=== PATIENT | female | born 1960 | race Caucasian/White ===

== ENCOUNTER 2018-01-13 00:18 | Emergency (ER) | payer OTHER, SELFPAY ==
[2018-01-13 00:20] VITALS: BP 133/78; BP 149/88; PULSE 70; PULSE 91; RESP 14; RESP 15; TEMP 36.8; O2SAT 96; O2SAT 98; BMI 25.7
[2018-01-13 00:24] VITALS: O2SAT 98
--- NOTE | 2018-01-13 00:28 | RAD_ITS ---
STUDY: X-RAY - PELVIS AND RIGHT HIP REASON FOR EXAM: Female, 57 years old. Right hip pain status post fall TECHNIQUE: Radiological exam, hip, unilateral, with pelvis when performed; 2 or 3 views. COMPARISON: None. FINDINGS: There is a non-specific bowel gas pattern. Normal visualized soft tissue structures. Bilateral iliac wings and sacrum are intact. Mild degenerative change of bilateral sacroiliac joints. Normal bilateral superior and inferior pubic rami. Normal pubic symphysis. Normal bilateral ischial tuberosities. Right hip is in normal alignment demonstrates mild nonuniform joint space narrowing and subchondral sclerosis. No right femoral fracture. Left hip joint is in normal alignment and demonstrates mild nonuniform joint space narrowing and subchondral sclerosis. No left femoral fracture. RAD/HIP, UNI W/ Pelvis 2-3 Views IMPRESSION: 1. No evidence of acute injury to the pelvis. 2. 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 Electronically Signed: Mukesh Sparks MD at 2:01 EDT Tel , Service support ,
--- NOTE | 2018-01-13 00:32 | ED.VISSUMM ---
- ER Visit Summary Date of Service: 01/13/18 Chief Complaint: Right hip pain History of Present Illness: The patient is a 57 F presenting with right hip pain after fall. 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 They both fell to the floor. She states she landed on the patient. She did not hit her head or lose consciousness. She has been able to ambulate. She complains of right hip pain. She took Aleve prior to arrival. No other injuries. Physical Examination: Vitals are stable. Patient is afebrile. Alert no acute distress. HEENT exam is unremarkable. Neck is nontender Lungs are clear and equal bilaterally. Heart is regular rate and rhythm. Abdomen is soft nontender nondistended. Back: No midline tenderness Extremities right lateral hip tenderness to palpation with painful range of motion Skin is warm and dry. No focal neurologic deficit. Remainder of exam is unremarkable. Emergency Department Course and Treatment: Right hip xray shows no evidence of acute injury to the pelvis. 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 On reevaluation, she is resting comfortably. She is advised to follow-up with [facility] care. Advised use NSAIDs for pain. Advised return to ED for worsening complaints. Disposition: Discharge home Impression: Right hip contusion status post fall This note was generated with [employer] dictation software. It may contain incorrect words, spelling, and punctuation that were not noted in review of the chart prior to signing ED Disposition - Plan for ED Patient: Chief Complaint: Fall Instructions: ED Mechanical Fall Referrals: [facility] [GROUP OF PHYSICIANS] - Vasile Altamirano III, MD [Primary Care Provider] -
--- NOTE | 2018-01-13 00:57 | ED.RN ---
CALLED RAHUL TO TEST THIS PT AT 0028
--- NOTE | 2018-01-13 02:23 | DCINST.ED_ITS ---
ED Disposition - Plan for ED Patient: Chief Complaint: Fall Instructions: ED Mechanical Fall Referrals: Vasile Altamirano III, MD [Primary Care Provider] - [facility] [GROUP OF PHYSICIANS] -
[2018-01-13 02:38] VITALS: RESP 18
== END 2018-01-13 02:38 | disposition home or self-care (01) ==
LOC: ED 00:35
PROVIDERS: Emergency Provider Emergency Medicine; Family Provider Family Medicine; PCP Family Medicine
DX: S70.01XA Contusion of right hip, initial encounter (principal); W18.39XA Other fall on same level, initial encounter; Y93.89 Activity, other specified; Y92.129 Unspecified place in nursing home as the place of occurrence of the external cause; Y99.0 Civilian activity done for income or pay; Z72.0 Tobacco use
CPT/HCPCS: 73502; 99282

== ENCOUNTER 2020-01-07 10:57 | Emergency (ER) | payer OTHER, SELFPAY ==
[2020-01-07 10:57] VITALS: BP 139/93; PULSE 82; RESP 16; TEMP 36.2; O2SAT 98; BMI 27.4
--- NOTE | 2020-01-07 11:11 | RAD_ITS ---
STUDY: X-RAY - RIGHT FOOT CLINICAL: Female, 59 years old. FALL TODAY, PAIN TECHNIQUE: 3 view(s) of the foot. COMPARISON: None. FINDINGS: There is a plantar calcaneal spur. The bones are osteopenic. Normal visualized subtalar, talonavicular, calcaneocuboid, tarsal and tarsometatarsal articulations. Normal metatarsi. Normal metatarsophalangeal joint of the great toe. Normal tibial and fibular sesamoid bones. Normal interphalangeal joint of the great toe. Normal phalanges of the great toe. Normal second through fifth metatarsophalangeal joints. Normal interphalangeal joints and phalanges of the lesser toes. The soft tissue structures are unremarkable. RAD/Foot min 3 Views IMPRESSION: Osteopenia. Plantar spur. No visualized acute fracture. Electronically Signed: Lesa Arcos MD at 12:22 EDT Tel , Service support ,
--- NOTE | 2020-01-07 11:12 | RAD_ITS ---
STUDY: X-RAY - LEFT SCAPULA REASON FOR EXAM: Female, 59 years old. FALL, PAIN, POSTERIOR SHOULDER TECHNIQUE: 2 view(s) of the scapula were obtained. COMPARISON: None. FINDINGS: Normal scapula, including the osseous glenoid rim, acromion, scapular neck, spine, coracoid process, and visualized body. Normal glenohumeral articulation. There is degenerative arthrosis of the acromioclavicular joint without inferior osseous spur formation. Normal visualized humeral head. Normal visualized pulmonary apex. There is partially visualized degenerative change in the cervical and thoracic spine. RAD/Scapula IMPRESSION: Normal plain film x-ray examination of the scapula. Electronically Signed: Lesa Arcos MD at 12:17 EDT Tel , Service support ,
[2020-01-07] MEDS: Ibuprofen 600 MG Tablet PO (11:32)
--- NOTE | 2020-01-07 12:42 | ED.DCSUM_ITS ---
- ER Visit Summary Date of Service: 01/07/20 Chief Complaint: Fall History of Present Illness: The patient is a 59 F who reports that an hour and a half ago she lost her balance and fell. States that she hurt her left scapula and has pain out of 6 out of 10 in severity. She has pain in her right foot that is 10 out of 10 with standing and 6 out of 10 at rest. She denies any blow to the head or loss of consciousness. No neck, back, shoulder, wrist, or hip pain. Physical Examination: Vitals: Stable. Afebrile. Neck: No vertebral tenderness. Full ROM without difficulty. Cleared by NEXUS criteria. Back: No vertebral tenderness. General: A&O x 3. NAD. Cardiovascular exam: Regular rate and rhythm, no murmur, rub or gallop. Respiratory exam: Chest nontender. No crepitus. Clear to auscultation bilaterally. No wheezes or stridor. Abdominal exam: Soft, nontender, nondistended, normal bowel sounds. No pain in RUQ or LUQ specifically. No peritoneal signs. Extremity: Mild tenderness palpation is diffuse over her left scapula. No pain with range of motion of her shoulder. No tenderness over the proximal humerus or over the clavicle. She is neuro vas intact distal this. Moderate tenderness palpation over the mid to distal half of her right fifth metatarsal. No soft tissue swelling or contusion. 2+ dorsalis pedis pulse. Test Results: Clinical Impression(s) from Imaging Studies Foot X-Ray 01/07/20 11:11 IMPRESSION: Osteopenia. Plantar spur. No visualized acute fracture. Electronically Signed: Lesa Arcos MD at 12:22 EDT Tel , Service support , Scapula X-Ray 01/07/20 11:12 IMPRESSION: Normal plain film x-ray examination of the scapula. Electronically Signed: Lesa Arcos MD at 12:17 EDT Tel , Service support , Emergency Department Course and Treatment: Patient was treated with ibuprofen. She is resting comfortably. Treatment Plan: Patient will be discharged with a sling and a walking boot. Instructed to follow-up Dr. Pastrana in 1 week if her shoulder is not improving. Follow-up with Dr. Plasencia in 1 week if her foot is not improving. Return to the emergency department for any worsening symptoms. Disposition: To home in improved and stable condition. Impression: 1. Fall. 2. Right foot sprain. 3. Left scapular pain. This note was generated with [employer]ation software. It may contain incorrect words, spelling, and punctuation that were not noted in review of the chart prior to signing ED Disposition - Plan for ED Patient: Disposition: Home or Assisted Living Instructions: ED Sprain Foot, ED Shoulder Pain Uncertain Cause Referrals: Jericho Pemberton DO [STAFF PHYSICIAN] - 1 Week if not improving Jericho Plasencia DPM [STAFF PHYSICIAN] - 1 Week if not improving
== END 2020-01-07 13:05 | disposition home or self-care (01) ==
LOC: ED 11:50
PROVIDERS: Emergency Provider Emergency Medicine; PCP Family Medicine
DX: S93.601A Unspecified sprain of right foot, initial encounter (principal); M25.512 Pain in left shoulder; F17.200 Nicotine dependence, unspecified, uncomplicated; F32.9 Major depressive disorder, single episode, unspecified; W19.XXXA Unspecified fall, initial encounter
CPT/HCPCS: 73010; 73630; 99283

== ENCOUNTER 2020-06-30 20:31 | Emergency (ER) | payer OTHER, SELFPAY ==
[2020-06-30 20:32] VITALS: BP 177/84; PULSE 125; RESP 16; TEMP 37; O2SAT 97; BMI 30.7
--- NOTE | 2020-06-30 20:33 | ED.RN ---
RN CALLED FOR EKG, PULLED OLD EKGS FOR
--- NOTE | 2020-06-30 20:39 | ED.RN ---
family member waiting in parking lot. neva [phone]
--- NOTE | 2020-06-30 20:46 | EKG12_ITS ---
Test Reason : CP Blood Pressure : / mmHG Vent. Rate : 124 BPM Atrial Rate : 124 BPM P-R Int : 166 ms QRS Dur : 074 ms QT Int : 314 ms P-R-T Axes : 053 -39 031 degrees QTc Int : 451 ms Sinus tachycardia Left axis deviation Inferior infarct , age undetermined ,cannot be excluded Anterior infarct , age undetermined ,cannot be excluded Abnormal ECG Confirmed by OSIRIS YOO, MARLINE ([id number]), manager editorial GELACIO MUNOZ ([id number]) on 07/03/2020 10:32:26 AM Referred By: MERCEDES Confirmed By:MARLINE NEWELL MD
[2020-06-30] MEDS: Acetaminophen 500 MG Tablet 1000 MG PO (20:52)
[2020-06-30] MEDS: 0.9% Normal Saline 1,000 ML 1000 ML IV (20:53)
[2020-06-30 20:56] VITALS: BP 157/62; PULSE 101; RESP 20; O2SAT 97
[2020-06-30 21:02] LABS: Absolute Neutrophil Count 9.3 X10^3/uL (2.0-7.7); Basophil# 0.09 X10^3/uL; Basophil% 0.7 % (0-1); Eosinophil# 0.05 X10^3/uL; Eosinophils% 0.4 % (0-5); Hematocrit 50.6 % (37-47); Hemoglobin 16.6 g/dL (12.0-15.0); Lymphocyte % 23.4 % (19-41); Mean Corp Hgb Conc 32.8 g/dL (32-36); Mean Corpuscular Hgb 29.7 pg (27.0-32.0); Mean Corpuscular Volume 90.7 fL (81-99); Mean Platelet Vol. 10.8 fl (6.2-12.0); Monocyte# 0.69 X10^3/uL; Monocyte% 5.2 % (0-10); NRBC Flagged by Analyzer 0 % (0-5); Neutrophil # 9.26 X10^3/uL (2.7-7.7); Neutrophil % 69.8 % (47-70); Platelet Count 367 K/mm3 (150-450); RBC Distribution Width CV 12.3 % (11.6-14.6); RBC Distribution Width SD 40.8 fl (35.1-43.9); Red Blood Count 5.58 M/mm3 (4.2-5.4); White Blood Count 13.3 K/mm3 (4.4-11.0)
--- NOTE | 2020-06-30 21:02 | RAD_ITS ---
HISTORY: CHEST PAIN TODAY EXAM: XR Chest 1 View: COMPARISON: None FINDINGS: # of images incl. paperwork: 1 Lungs are clear. Heart is not enlarged. No acute osseous pathology perceived. Pulmonary vascularity is distinct. No effusions. RAD/Chest 1 View (Portable) IMPRESSION: Normal. at 2120 Reported and signed by: Edgard Kothari MD Electronically Signed: Edgard Kothari MD at 21:19 EST Tel , Service support ,
[2020-06-30 21:10] LABS: D-Dimer Quantitative (DVT/PE) 0.71 FEU/ug/m (0.27-0.49)
[2020-06-30 21:20] LABS: Anion Gap 6 (5-15); BUN 18 mg/dL (7-18); Calcium,Total 10.2 mg/dL (8.5-10.1); Chloride 110 mmol/L (98-107); Creatinine, Serum 1.06 mg/dL (0.55-1.02); EST Glomerular Filtration Rate 56 mL/min (>60); Est Glom Filt Rate - Afr Amer 68 mL/min (>60); Estimated Creatinine Clearance 43.52 ml/min; Glucose 105 mg/dL (74-106); Potassium 4.1 mmol/L (3.5-5.1); Sodium Level 141 mmol/L (136-145); Thyroid Stim Hormone (TSH) 0.81 uIU/mL (0.358-3.74)
[2020-06-30 22:01] VITALS: BP 153/80; PULSE 89; RESP 20; O2SAT 93
--- NOTE | 2020-06-30 22:04 | CT_ITS ---
HISTORY: CP THAT STARTED TODAY TECHNIQUE: Helically acquired images were obtained of the chest following the intravenous administration of 100 ML of Isovue-370 Iodinated contrast. as per pulmonary angiogram protocol with 2D , without any 3-D MIP reconstructions. A radiation dose optimization technique was used for this scan. COMPARISON: Chest x-ray from less than one hour earlier. FINDINGS: # of images incl. paperwork: 1151 Lungs are clear but for trace basilar atelectasis. No effusions. Within the thoracic spine there is a mild kyphosis with multilevel degenerative disc disease Vertebral body height is mostly preserved Facets are well aligned. No rib lesions are perceived. Heart is not enlarged. Thoracic aorta is normal. No aneurysms, stenoses, dissections, nor occlusions. Mild mediastinal hilar and axillary lymph node prominence. I would not place the size and number of the lymph nodes, however, be great enough to be adenopathy No pulmonary emboli. The left adrenal gland is somewhat plethoric and lobular in contour. I cannot discern definitively if there is a left adrenal nodule just thickening of the gland. It is feasible from the medial limb of the left adrenal gland there is a 14 mm nodule. If this is a nodule, then it has a central density of 12 Hounsfield units. On the coronal reformatted images it certainly does appear to be nodular CT/CTA Chest W/WO Contrast IMPRESSION: No pulmonary embolism, aortic aneurysm, or aortic dissection. 14 mm left adrenal nodule with a density of 12 Hounsfield units. Although this is likely a benign adenoma if it is indeed a nodule and not just a plethoric adrenal gland, that histological diagnosis cannot be confirmed based on current imaging parameters. Recommend comparison to any previous imaging. If no previous imaging consider follow-up imaging. Follow-up imaging could be a multiphase CT or MRI. Individualized dose optimization techniques were used for this CT. at 2243 Reported and signed by: Edgard Kothari MD Electronically Signed: Edgard Kothari MD at 22:42 EST Tel , Service support ,
--- NOTE | 2020-06-30 22:54 | ED.VISSUMM ---
- ER Visit Summary Date of Service: 06/30/20 Chief Complaint: Chest pain History of Present Illness: The patient is a [address] Vasile Altamirano iii. 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 Is a constant sharp pain since that time. Is 8 out of 10 at worst and 3-10 currently. It is worsened by deep breaths. She denies any change with exertion or movement. Is relieved by remaining still. She does report that she has mild shortness of breath with this. She denies any nausea, vomiting, or diaphoresis. Physical Examination: Vitals: Stable. Afebrile. General: Well-nourished and well-developed. Head: Normocephalic atraumatic. Neck: Supple, no lymphadenopathy. No JVD. Nontender. Cardiovascular: Regular rate and rhythm. No murmurs. Respiratory: No respiratory distress. Clear to auscultation bilaterally. Abdominal: Soft, nontender, nondistended, normal bowel sounds. No guarding, rebound, or peritoneal signs. Back: Nontender. Extremities: Nontender, no edema. Skin: Normal color, no rash. Neurologic: Alert and oriented ?3. Cranial nerves II through XII are intact. Normal strength and sensation. Psych: Normal affect. Test Results: EKG is sinus tach at [address] changes. There is no old EKG for comparison. Troponin is negative. D-dimer is 0.71. Chem-7 shows a chloride of 110, creatinine 1.06, calcium 10.2. TSH is 0.81. COVID-19 is negative. CBC shows a white count of 13.3, H&H of 16.6 and 50.6. Clinical Impression(s) from Imaging Studies Chest X-Ray 06/30/20 21:02 IMPRESSION: Normal. at 2120 Reported and signed by: Edgard Kothari MD Electronically Signed: Edgard Kothari MD at 21:19 EST Tel , Service support , Chest CTA 06/30/20 22:04 IMPRESSION: No pulmonary embolism, aortic aneurysm, or aortic dissection. 14 mm left adrenal nodule with a density of 12 Hounsfield units. Although this is likely a benign adenoma if it is indeed a nodule and not just a plethoric adrenal gland, that histological diagnosis cannot be confirmed based on current imaging parameters. Recommend comparison to any previous imaging. If no previous imaging consider follow-up imaging. Follow-up imaging could be a multiphase CT or MRI. Individualized dose optimization techniques were used for this CT. at 2243 Reported and signed by: Edgard Kotahri MD Electronically Signed: Edgard Kothari MD at 22:42 EST Tel , Service support , Emergency Department Course and Treatment: Patient was treated with Tylenol and is resting comfortably. She was given a liter bolus of normal saline. Repeat heart rate is in the 70s. Treatment Plan: Patient's pain is very atypical. Her heart score is 3. I feel that she is suitable candidate for further outpatient evaluation. I also did discuss with her the adrenal nodule. She is instructed to follow-up with her primary care physician in 3 to 5 days for another exam. Return to the emergency department for any worsening symptoms. Disposition: To home in improved and stable condition. Impression: 1. Atypical chest pain. 2. Heart score of 3. 3. Left adrenal nodule. This note was generated with [employer] dictation software. It may contain incorrect words, spelling, and punctuation that were not noted in review of the chart prior to signing ED Disposition - Plan for ED Patient: Disposition: Home or Assisted Living Instructions: ED Chest Pain, Uncertain Cause Referrals: Vasile Altamirano III, MD [Primary Care Provider] - 3-5 Days
[2020-06-30 23:06] VITALS: BP 149/82; PULSE 75; RESP 16; O2SAT 98
== END 2020-06-30 23:09 | disposition home or self-care (01) ==
PROVIDERS: Emergency Provider Emergency Medicine; PCP Family Medicine
DX: R07.89 Other chest pain (principal); F17.200 Nicotine dependence, unspecified, uncomplicated
CPT/HCPCS: 71045; 71275; 80048; 84443; 84484; 85025; 85379; 87426; 93005; 99284; J7030; Q9967; A4216

== ENCOUNTER 2021-06-17 10:46 | Emergency (ER) | payer OTHER, SELFPAY ==
[2021-06-17 10:47] VITALS: BP 117/60; PULSE 103; RESP 15; TEMP 35.8; O2SAT 97; BMI 28.0
[2021-06-17 12:03] LABS: Absolute Lymphocyte Count 2.32 X10^3/uL (0.83-4.51); Absolute Neutrophil Count 6.5 X10^3/uL (2.0-7.7); Basophil# 0.06 X10^3/uL; Basophil% 0.6 % (0-1); Eosinophil# 0.05 X10^3/uL; Eosinophils% 0.5 % (0-5); Hematocrit 45.5 % (37-47); Hemoglobin 14.6 g/dL (12.0-15.0); Lymphocyte # 2.32 X10^3/ul (0.83-4.51); Lymphocyte % 24.4 % (19-41); Mean Corp Hgb Conc 32.1 g/dL (32-36); Mean Corpuscular Hgb 28.5 pg (27.0-32.0); Mean Corpuscular Volume 88.7 fL (81-99); Mean Platelet Vol. 10.2 fl (6.2-12.0); Monocyte# 0.48 X10^3/uL; Monocyte% 5.1 % (0-10); NRBC Flagged by Analyzer 0 % (0-5); Neutrophil # 6.53 X10^3/uL (2.7-7.7); Neutrophil % 68.9 % (47-70); Platelet Count 312 K/mm3 (150-450); RBC Distribution Width CV 12.6 % (11.6-14.6); RBC Distribution Width SD 41.4 fl (35.1-43.9); Red Blood Count 5.13 M/mm3 (4.2-5.4); White Blood Count 9.5 K/mm3 (4.4-11.0)
[2021-06-17 12:17] LABS: AST(SGOT) 10 U/L (15-37); Alanine Aminotransfer ALT/SGPT 17 U/L (13-56); Albumin, Serum 3.8 g/dL (3.2-5.0); Alkaline Phosphatase 115 U/L (45-117); Anion Gap 6 (5-15); BUN 19 mg/dL (7-18); BUN/Creat Ratio 31.1 RATIO (10-20); Calcium,Total 9.5 mg/dL (8.5-10.1); Chloride 108 mmol/L (98-107); Creatinine, Serum 0.61 mg/dL (0.55-1.02); EST Glomerular Filtration Rate 105 mL/min (>60); Est Glom Filt Rate - Afr Amer 127 mL/min (>60); Estimated Creatinine Clearance 74.66 ml/min; Globulin 3.9 g/dL (2.2-4.2); Glucose 99 mg/dL (74-106); Potassium 3.9 mmol/L (3.5-5.1); Protein, Total 7.7 g/dL (6.4-8.2); Sodium Level 141 mmol/L (136-145)
[2021-06-17 12:33] VITALS: BP 122/74; PULSE 93; RESP 16; TEMP 36.7; O2SAT 97
--- NOTE | 2021-06-17 12:59 | EDS_ITS ---
HPI History of Present Illness Chief Complaint: Abd Pain Informant: patient Onset/Context/Timing Onset: Days (5 days) Context: Gradual Onset Current Severity: Mild Maximum Severity: Moderate Narrative Narrative: Patient presents with a 5-day history of fever and suprapubic abdominal pain. She said temperature has been around 101. It will come down briefly with Tylenol and then go back up again. She complains of pain in the suprapubic area but denies dysuria. She denies pain with bowel movement. No cough or congestion. She does report some nausea but no vomiting. She tested negative for COVID earlier today. [facility] Medical History Arthritis Back pain history of herniated discs back History of skin cancer History of TMJ disorder Plantar fasciitis Shoulder pain Home Medications ergocalciferol (vitamin D2) 1,250 mcg PO QWEEK 01/07/20 [History Last Taken Unknown] paroxetine HCl 30 mg PO DAILY 01/07/20 [History Last Taken Unknown] ciprofloxacin HCl [Cipro] 500 mg PO BID #20 tab 06/17/21 [Rx Last Taken Unknown] metronidazole 500 mg PO Q12H 10 Days #20 tab 06/17/21 [Rx Last Taken Unknown] Allergy/AdvReac Type Severity Reaction Status Date / Time meperidine [From Demerol] Allergy Anaphylaxis Verified 06/17/21 10:50 aspirin AdvReac Nausea/Vom/ Verified 06/17/21 10:50 Diarrhea Latex, Natural Rubber AdvReac Hives Verified 06/17/21 10:50 Penicillins AdvReac Anaphylaxis Verified 06/17/21 10:50 Family History Mother Cancer Father Kidney failure Surgical History History of hysterectomy History of tubal ligation Social History Smoking Status: Smoker, status unknown alcohol intake: never ROS ROS ED Constitutional Constitutional ED: Reports fever(s) Eyes Eyes: Denies blurry vision or change in vision ENT ENT ED: Denies rhinorrhea or sore throat Cardiovascular Cardiovascular: Denies chest pain or palpitations Respiratory/Chest Respiratory/Chest: Denies cough or dyspnea Gastrointestinal Gastrointestinal: Reports abdominal pain and nausea; Denies diarrhea or vomiting Genitourinary Genitourinary ED: Denies dysuria or urinary frequency Musculoskeletal Musculoskeletal: Denies back pain or neck pain Integumentary Denies rash Neurologic Neurologic: Denies headache(s) Allergic/Immunologic Allergic/Immunologic ED: Denies urticaria EXAM Physical Exam Const Vital Signs: 06/17/21 10:47 06/17/21 12:33 Temperature 96.5 F L 98.1 F Temperature Source Temporal Temporal Pulse Rate 103 H 93 Respiratory Rate 15 16 Blood Pressure 117/60 122/74 H Blood Pressure Mean 79 90 Pulse Ox 97 97 Oxygen Delivery Method Room Air Room Air Positive well nourished and well developed General Appearance ED: well developed HEENT Reports moist mucous membranes Eyes PERRL and EOMs intact bilaterally Neck supple Resp normal respiratory effort and clear to auscultation bilaterally Cardio regular rate and regular rhythm GI Palpation: soft and tender suprapubic Extremity normal to inspection Neuro oriented x3 Sensorium / Orientation: alert Psych mental status grossly normal Skin no rashes or lesions noted MDM MDM MDM Narrative Medical decision making narrative: Lab work, urinalysis, CT scan abdomen pelvis obtained. Patient declined anything for pain. Lab Data Attestation: I reviewed the patient's lab results. Labs: Laboratory Results - last 24 hr 06/17/21 06/17/21 06/17/21 11:55 11:55 13:10 WBC 9.5 RBC 5.13 Hgb 14.6 Hct 45.5 MCV 88.7 MCH 28.5 MCHC 32.1 RDW Std Deviation 41.4 RDW Coeff of Rajan 12.6 Plt Count 312 MPV 10.2 Immature Gran % (Auto) 0.500 Neut % (Auto) 68.9 Lymph % (Auto) 24.4 Assumption % (Auto) 5.1 Eos % (Auto) 0.5 Baso % (Auto) 0.6 Absolute Neuts (auto) 6.5 Absolute Lymphs (auto) 2.32 Nucleated RBC % 0 Sodium 141 Potassium 3.9 Chloride 108 H Carbon Dioxide 27.0 Anion Gap 6 BUN 19 H Creatinine 0.61 Estim Creat Clear Calc 74.66 Est GFR (MDRD) Af Amer 127 Est GFR (MDRD) Non-Af 105 BUN/Creatinine Ratio 31.1 H Glucose 99 Calcium 9.5 Total Bilirubin 0.40 AST 10 L ALT 17 Alkaline Phosphatase 115 Total Protein 7.7 Albumin 3.8 Globulin 3.9 Albumin/Globulin Ratio 1.0 Urine Color Yellow Urine Clarity Sl. Cloudy Urine pH 6.0 Ur Specific Somers 1.015 Urine Protein 15 H Urine Glucose (UA) Normal Urine Ketones 5 H Urine Occult Blood 10 H Urine Nitrite Positive H Urine Bilirubin Negative Urine Urobilinogen 1 H Ur Leukocyte Esterase 25 H Urine RBC 0-5 SEEN Urine WBC 0-5 SEEN Ur Squamous Epith Cells 0-5 SEEN Urine Bacteria 4+ Urine Mucus 1+ Radiography Diagnostic Testing: Clinical Impression(s) from Imaging Studies Abdomen/Pelvis CT 06/17/21 12:59 IMPRESSION: Findings in keeping with a mild degree of diverticulitis with a mild degree of perisigmoid colon inflammatory changes. Fatty infiltration of the liver. Small 1.2 cm hypodense nodule in the left adrenal gland in keeping with adenoma. Electronically Signed: Rohit Orr MD at 14:52 EST , Service support , Treatment and Re-Evaluation Comments:: Labwork reveals normal white count with no left shift. Chemistry studies unremarkable. Urinalysis does show 4+ bacteria but 0-5 white cells. Positive nitrates noted. CT scan reveals mild diverticulitis. Patient be treated with Cipro and Flagyl which will also cover urine. Return instructions provided. Discharge Plan Triage Chief Complaint: Abd Pain ED Provider: Beth Wilkinson Dx/Rx/DC Orders Clinical Impression: Diverticulitis Instructions: ED Diverticulitis Prescriptions: New ciprofloxacin HCl [Cipro] 500 mg tablet 500 mg PO BID Qty: 20 RF: 0 metronidazole 500 mg tablet 500 mg PO Q12H 10 Days Qty: 20 RF: 0 No Action paroxetine HCl 30 MG tablet 30 mg PO DAILY RF: 0 ergocalciferol (vitamin D2) 1,250 MCG capsule 1,250 mcg PO QWEEK RF: 0 Primary Care Provider: Care Physician,No Primary Referrals: Mayito Bolanos MD [NON-STAFF] - 1-2 Weeks Care Physician,No Primary [Primary Care Provider] - Disposition Disposition: Home, Self Care
--- NOTE | 2021-06-17 12:59 | CT_ITS ---
STUDY: CT ABDOMEN AND PELVIS WITH CONTRAST REASON FOR EXAM: Female, 61 years old. Abd pain, fever -- IV PO Contrast. History of prior intussusception. RADIATION DOSAGE (If Supplied By Facility): CTDIvol = ( 13.39 ) mGy, DLP = ( 764.27 ) mGycm TECHNIQUE: Transaxial images were obtained from the dome of the diaphragm to the symphysis pubis with oral contrast. Oral and amp; IV Gastrografin and amp; 100mL Isovue-300 was administered. Sagittal and coronal images were reconstructed. Individualized dose optimization techniques were used for this CT. COMPARISON: None. FINDINGS: The visualized lung bases are unremarkable. The visualized portions of the heart are within normal limits. There is decreased attenuation of the liver consistent with steatosis. Normal gallbladder and extrahepatic biliary system. Normal spleen. Normal pancreas. There is a small, circumscribed, smooth, low attenuation left adrenal mass, consistent with an adrenal adenoma. This measures 1.2 cm. Normal right adrenal gland. Normal right kidney. Normal left kidney. Normal visualized stomach. Normal small intestine. There is diverticulosis, with thickening of the colon wall, and pericolonic inflammation changes consistent with mild degree of acute diverticulitis. The appendix is visualized and appears normal. There is scattered atherosclerotic calcification of the abdominal aorta, without a demonstrated aneurysm. Normal inferior vena cava. Normal retroperitoneum. Normal urinary bladder. There is absence of the uterus consistent with a prior hysterectomy. Normal abdominal wall. Normal osseous structures. CT/Abdomen/Pelvis WITH Contrast IMPRESSION: Findings in keeping with a mild degree of diverticulitis with a mild degree of perisigmoid colon inflammatory changes. Fatty infiltration of the liver. Small 1.2 cm hypodense nodule in the left adrenal gland in keeping with adenoma. Electronically Signed: Rohit Orr MD at 14:52 EST , Service support ,
[2021-06-17 13:20] LABS: Color, Urine Yellow (Yellow); Glucose, Dipstick Normal (Normal); Ketone-Dipstick 5 mg/dl (Negative); Leukocyte Esterase-Dipstick 25 /ul (Negative); Nitrite-Dipstick Positive (Negative); Occult Blood-Urine 10 /ul (Negative); Protein-Dipstick 15 mg/dl (Negative); Specific Gravity, Urine 1.015 (1.002-1.030); Urine Bilirubin Dipstick Negative (Negative); Urine Clarity Sl. Cloudy (Clear); Urine Urobilinogen 1 mg/dl (Normal)
[2021-06-17 13:28] LABS: Bacteria 4+ /hpf (None Seen); Mucous, Urine 1+ /hpf (<or=2+); Red Blood Cells-Urine 0-5 SEEN /hpf (0-5); Squamous Epithelial Cells - UA 0-5 SEEN /hpf (5-10); White Blood Cells 0-5 SEEN /hpf (0-5)
[2021-06-17] MEDS: metroNIDAZOLE 500 MG Tablet PO (15:52)
[2021-06-17] MEDS: Ciprofloxacin 500 MG Tablet PO (15:53)
[2021-06-17 16:07] VITALS: BP 129/78; PULSE 81; RESP 16; O2SAT 96
== END 2021-06-17 16:08 | disposition home or self-care (01) ==
PROVIDERS: Emergency Provider Emergency Medicine; Visit Provider Emergency Medicine
DX: K57.92 Diverticulitis of intestine, part unspecified, without perforation or abscess without bleeding (principal)
CPT/HCPCS: 74177; 80053; 81001; 85025; 99283; Q9967; A4216

== ENCOUNTER → 2022-10-20 | Outpatient (CLI) | payer OTHER, SELFPAY ==
[2022-10-20 12:32] LABS: Absolute Lymphocyte Count 2.99 X10^3/uL (0.83-4.51); Absolute Neutrophil Count 6.5 X10^3/uL (2.0-7.7); Basophil# 0.08 X10^3/uL; Basophil% 0.8 % (0-1); Eosinophil# 0.08 X10^3/uL; Eosinophils% 0.8 % (0-5); Hematocrit 45.8 % (37-47); Hemoglobin 14.6 g/dL (12.0-15.0); Lymphocyte # 2.99 X10^3/ul (0.83-4.51); Lymphocyte % 29.3 % (19-41); Mean Corp Hgb Conc 31.9 g/dL (32-36); Mean Corpuscular Hgb 28.9 pg (27.0-32.0); Mean Corpuscular Volume 90.7 fL (81-99); Mean Platelet Vol. 10.3 fl (6.2-12.0); Monocyte# 0.53 X10^3/uL; Monocyte% 5.2 % (0-10); NRBC Flagged by Analyzer 0 % (0-5); Neutrophil # 6.47 X10^3/uL (2.7-7.7); Neutrophil % 63.5 % (47-70); Platelet Count 298 K/mm3 (150-450); RBC Distribution Width CV 13.2 % (11.6-14.6); RBC Distribution Width SD 43.2 fl (35.1-43.9); Red Blood Count 5.05 M/mm3 (4.2-5.4); White Blood Count 10.2 K/mm3 (4.4-11.0)
[2022-10-20 13:29] LABS: Vitamin D,25 Hydroxy 65.4 ng/mL
[2022-10-20 13:41] LABS: ALB/GLOB Ratio 1.1 RATIO (0.9-2.4); AST(SGOT) 16 U/L (15-37); Alanine Aminotransfer ALT/SGPT 14 U/L (13-56); Albumin, Serum 3.9 g/dL (3.2-5.0); Alkaline Phosphatase 108 U/L (45-117); Anion Gap 8 (5-15); BUN 24 mg/dL (7-18); BUN/Creat Ratio 40.1 RATIO (10-20); Calcium,Total 8.8 mg/dL (8.5-10.1); Chloride 108 mmol/L (98-107); Cholesterol 243 mg/dL (200); EST Glomerular Filtration Rate 107 mL/min (>60); Est Glom Filt Rate - Afr Amer 130 mL/min (>60); Globulin 3.5 g/dL (2.2-4.2); Glucose 93 mg/dL (74-106); High Density Lipoprotein 66 mg/dL; Protein, Total 7.4 g/dL (6.4-8.2); Sodium Level 142 mmol/L (136-145); Thyroid Stim Hormone (TSH) 0.62 uIU/mL (0.358-3.74); Triglycerides 149 mg/dL; Very Low Density Lipoprotein 30 mg/dL (5-40)
== END | disposition home or self-care (01) ==
LOC: BIMLAB 11:29
PROVIDERS: PCP Internal Medicine; Referring Provider Internal Medicine; Visit Provider Internal Medicine
DX: E55.9 Vitamin D deficiency, unspecified (principal); F43.10 Post-traumatic stress disorder, unspecified; F32.A Depression, unspecified; F41.9 Anxiety disorder, unspecified; Z13.6 Encounter for screening for cardiovascular disorders
CPT/HCPCS: 36415; 80053; 80061; 82306; 84443; 85025

== ENCOUNTER → 2022-11-11 | Outpatient (CLI) | payer OTHER, SELFPAY ==
--- NOTE | 2022-11-11 16:01 | BI_ITS ---
MAMMOGRAPHY - BILATERAL SCREENING REASON FOR EXAM: Female, 62 years old. Routine annual screening examination. PERTINENT HISTORY: Non-contributory. Remote left stereotactic breast biopsy. TECHNIQUE: Digital bilateral breast christina (3D mammographic acquisition) in the CC and MLO projections. 2-D mediolateral oblique (MLO) and craniocaudad (CC) views of both breasts were obtained. CAD: Full Field Digital Mammography with Computer Added Detection was performed. COMPARISON: No comparison mammograms available at this time. If any prior films become available, an addendum to this report can be generated. FINDINGS: Breast Composition: There are scattered areas of fibroglandular density. There are no dominant masses or suspicious calcifications. A tissue clip marker is seen within a 6.5 mm well-defined nodule in the upper central midportion of the left breast. No other significant abnormalities are identified. BI/SCRN MAMM (CAD)W/CHRISTINA BILAT IMPRESSION: A tissue clip marker is seen within a 6.5 mm well-defined nodule in the upper central midportion of the left breast. Yearly follow-up mammogram recommended. (A) ASSESSMENT CATEGORY: BIRADS Category 2: Benign. A letter regarding these results will be sent to the patient by the facility within 30 days. Approximately 10% of breast cancers are not detected by mammography. A normal mammogram should not delay biopsy of a clinically suspicious abnormality. [id number] Electronically Signed: Rohit Orr MD at 9:11 EDT ,
== END | disposition home or self-care (01) ==
LOC: OPBI 16:00
PROVIDERS: PCP Internal Medicine; Referring Provider Internal Medicine; Visit Provider Internal Medicine
DX: Z12.31 Encounter for screening mammogram for malignant neoplasm of breast (principal)
CPT/HCPCS: 77063; 77067

== ENCOUNTER → 2023-03-30 | Outpatient (CLI) | payer OTHER, SELFPAY ==
--- NOTE | 2023-03-30 14:15 | RAD_ITS ---
STUDY: X-RAY - LEFT FOOT CLINICAL: Female, 62 years old. Foot injury TECHNIQUE: 3 view(s) of the foot. COMPARISON: None. FINDINGS: There is a plantar calcaneal spur. Normal visualized subtalar, talonavicular, calcaneocuboid, tarsal and tarsometatarsal articulations. Normal metatarsi. Normal metatarsophalangeal joint of the great toe. There is a bipartite fibula sesamoid. Normal interphalangeal joint of the great toe. Normal phalanges of the great toe. Normal second through fifth metatarsophalangeal joints. Normal interphalangeal joints and phalanges of the lesser toes. The soft tissue structures are unremarkable. RAD/Foot min 3 Views IMPRESSION: The entire spur. No fracture seen. Electronically Signed: Rohit Orr MD at 14:45 EDT ,
== END | disposition home or self-care (01) ==
PROVIDERS: PCP Internal Medicine; Referring Provider Physician Assistant; Visit Provider Physician Assistant
DX: S99.929A Unspecified injury of unspecified foot, initial encounter (principal)
CPT/HCPCS: 73630

== ENCOUNTER → 2023-04-22 | Outpatient (CLI) | payer OTHER, SELFPAY | END | disposition home or self-care (01) | LOC: PSN 09:07 | PROVIDERS: PCP Internal Medicine; Referring Provider Internal Medicine; Visit Provider Internal Medicine | DX: J06.9 Acute upper respiratory infection, unspecified (principal) | CPT/HCPCS: 87633; C9803 ==

== ENCOUNTER → 2023-06-18 | Outpatient (CLI) | payer OTHER, SELFPAY ==
--- OUTSIDE RECORDS SUMMARY | 2023-06-18 09:47 | XMS RPT_ITS | CCD ---
Author Name Unknown Address [address] [place] [address] Organization [facility] Care Team Providers Care Wood Borer Name Role Phone Unavailable Primary Care Provider TEJAL Vallejo Referring Unavailable TEJAL GREENBERG Primary Care Unavailable MARTHA ÁLVAREZ Attending Unavailable Allergies Allergy Classification Reported Allergen(s) Allergy Type Date of Onset Reaction(s) Facility (3 sources) Adhesive Tape; Translations: [ADHESIVE TAPE (ROSINS)] Propensity to adverse reactions 6 [facility] Work Phone: (3 sources) Laramie; Translations: [COBALT] Drug Allergy 6 [facility] Work Phone: (3 sources) Gentamicin; Translations: [GENTAMICIN] Drug Allergy 6 [facility] Work Phone: (3 sources) Latex; Translations: [LATEX] Propensity to adverse reactions 6 [facility] Work Phone: (3 sources) Meperidine; Translations: [MEPERIDINE (PF)] Drug Allergy 6 [facility] Work Phone: (3 sources) Penicillins; Translations: [PENICILLINS] Propensity to adverse reactions 6 [facility] Work Phone: (3 sources) Salicylic Acid; Translations: [SALICYLATES] Drug Allergy 6 [facility] Work Phone: (1 source) thimersol [Other] Propensity to adverse reactions 6 [facility] Work Phone: (2 sources) OTHER; Translations: [OTHER] Propensity to adverse reactions (disorder) [facility] (1 source) IODINATED CONTRAST MEDIA; Translations: [IODINATED CONTRAST MEDIA] Propensity to adverse reactions to drug (disorder) 3 [facility] Medications Completed/Discontinued Medications Medication Drug Class(es) Dates Sig (Normalized) Sig (Original) cholecalciferol 0.05 mg oral capsule (1 source) Vitamin D Start: 01-28-2019 take 1 capsule by mouth once daily Cholecalciferol, Vitamin D3, 2,000 unit cap Take 1 capsule by mouth once daily. 0 01/28/2019 Active Problems Active Problems Problem Classification Problem Date Documented Da te Episodic/Chronic Adjustment disorders (1 source) Mixed anxiety and depressive disorder; Translations: [Adjustment disorder with mixed anxiety and depressed mood] Onset: 06-28-2018 06-28-2018 Chronic Anxiety disorders (1 source) Generalized anxiety disorder; Translations: [Generalized anxiety disorder] Onset: 06-28-2018 06-28-2018 Chronic Essential hypertension (1 source) Essential hypertension; Translations: [Essential (primary) hypertension] Onset: 07-30-2020 07-30-2020 Chronic Mood disorders (1 source) Mood disorders; Translations: [Depression with suicidal ideation] Onset: 09-17-2022 Nutritional deficiencies (1 source) Vitamin D deficiency; Translations: [Vitamin D deficiency, unspecified] Onset: 06-28-2018 06-28-2018 Chronic Osteoarthritis (2 sources) Arthritis of left knee; Translations: [Unilateral primary osteoarthritis, left knee] Onset: 01-27-2020 01-27-2020 Chronic Other connective tissue disease (1 source) Pain in left foot; Translations: [Pain in left foot] Episodic Other endocrine disorders (1 source) Adrenal mass; Translations: [Other specified disorders of adrenal gland] Onset: 07-02-2020 07-21-2020 Chronic Substance-related disorders (1 source) Tobacco user; Translations: [Nicotine dependence, unspecified, uncomplicated] Onset: 01-27-2020 01-27-2020 Chronic Suicide and intentional self-inflicted injury (1 source) Suicidal ideations; Translations: [Depression with suicidal ideation] Onset: 09-17-2022 Episodic Past or Other Problems Problem Classification Problem Date Documented Da te Episodic/Chronic Other connective tissue disease (1 source) Pain in left foot; Translations: [Foot pain, left] Onset: 11-08-2021 Episodic Results Test Name Value Interpretation Reference Range Facil ity Vital Signs Date Time Vital Sign Value Performing Clinician Jayna banks 11-08-2021 09:47-0400 Body temperature 98.71 [degF] Tejal Landon TICKET PRINTER AND TAGGER.REPORTER ANCHOR Work Phone: [facility] 11-08-2021 09:47-0400 Body weight 72.03 kg Tejal Landon TICKET PRINTER AND TAGGER.REPORTER ANCHOR Work Phone: [facility] 11-08-2021 09:47-0400 Diastolic blood pressure 82 mm[Hg] Tejal Landon TICKET PRINTER AND TAGGER.REPORTER ANCHOR Work Phone: [facility] 11-08-2021 09:47-0400 Heart rate 74 /min Tejal Landon TICKET PRINTER AND TAGGER.REPORTER ANCHOR Work Phone: [facility] 11-08-2021 09:47-0400 Respiratory rate 20 /min Tejal Landon TICKET PRINTER AND TAGGER.REPORTER ANCHOR Work Phone: [facility] 11-08-2021 09:47-0400 SaO2% (BldA) [Mass fraction] 97 % Tejal Landon TICKET PRINTER AND TAGGER.REPORTER ANCHOR Work Phone: [facility] 11-08-2021 09:47-0400 Systolic blood pressure 128 mm[Hg] Tejal Landon TICKET PRINTER AND TAGGER.REPORTER ANCHOR Work Phone: [facility] Encounters Encounter Date Encounter Type Care Provider Facility Start: 09-17-2022 End: 09-17-2022 Emergency department patient visit TEJAL GREENBERG Facility:[facility] Start: 09-17-2022 End: 09-17-2022 ambulatory [facility] Facility:[facility] Start: 11-08-2021 End: 11-08-2021 ambulatory [facility] Facility:[facility] Start: 11-08-2021 End: 11-08-2021 Patient encounter procedure Tejal Landon TICKET PRINTER AND TAGGER.REPORTER ANCHOR Work Phone: [facility] Procedures Date Procedure Procedure Detail Performing Clinician Start: 03-11-2019 Colonoscopy Tejal little TICKET PRINTER AND TAGGER.REPORTER ANCHOR Work Phone: Start: 02-17-2007 Mammography Tejal little TICKET PRINTER AND TAGGER.REPORTER ANCHOR Work Phone: Plan of Treatment Date Care Activity Detail Author Start: 07-30-2030 Urine microalbumin profile DTA P,TDAP,TD (3 - Td or Tdap) [facility] Start: 01-26-2025 LIPID SCREEN LIPID SCREEN [facility] Start: 03-11-2024 Colonoscopy COLONOSCOPY [facility] Start: 03-11-2024 COLORECTAL CANCER SCREENING COLORECTAL CANCER SCREENING [facility] Start: 07-17-2023 DIABETES SCREEN DIABETES SCREEN [facility] Start: 02-25-2022 ANNUAL PCP TEAM MEDICAL SERVICE REPRESENTATIVE DIANA DISEASE VISIT ANNUAL PCP TEAM CHRONIC DISEASE VISIT [facility] Start: 02-25-2022 SHINGRIX VACCINE (1 of 2) ESPARZA GRIX VACCINE (1 of 2) [facility] Immunizations Immunization Date Immunization Notes Care Provider Fa mateoty 07-30-2020 pneumococcal conjuga te vaccine, 13 valent Tejal Landon TICKET PRINTER AND TAGGER.REPORTER ANCHOR Work Phone: [facility] 07-30-2020 tetanus and diphther ia toxoids, adsorbed, preservative free, for adult use (5 Lf of tetanus toxoid and 2 Lf of diphtheria toxoid) Tejal Landon APRN.REPORTER ANCHOR Work Phone: [facility] 06-20-2020 COVID-19 vaccine, fu ll dose (MODERNA) Tejal Landon TICKET PRINTER AND TAGGER.REPORTER ANCHOR Work Phone: [facility] 03-22-2020 influenza, seasonal, injectable Tejal Landon TICKET PRINTER AND TAGGER.REPORTER ANCHOR Work Phone: [facility] 08-20-2014 tetanus toxoid, reduced diphtheria toxoid, and acellular pertussis vaccine, adsorbed Tejal Landon TICKET PRINTER AND TAGGER.REPORTER ANCHOR Work Phone: [facility] Work Phone: Payers Date Payer Category Payer Private Health Insurance [employer] A ETNA CHOICE POS II [id number] 2019-Present [phone] [address] [place] [address] POS [id number] 2019 Private Health Insurance [id number] Social History Date Type Detail Facility Tobacco smoking stat us WAIS Smokes tobacco daily [facility] Work Phone: History of tobacco use Cigarette Smoker [facility] Start: 11-08-2021 Alcohol intake Current non-dr work order detailer of alcohol (finding) [facility] Start: 07-25-2020 History SDOH Alcohol Frequency 1 [facility] Start: 07-25-2020 History SDOH Social Connections Phone 4 [facility] Start: 07-25-2020 History SDOH Social Connections Membership 98 [facility] Start: 07-25-2020 History SDOH Social Connections Living 3 [facility] Start: 07-25-2020 History SDOH Physica l Activity DPW 0 [facility] Start: 07-25-2020 History SDOH Stress 2 [facility] Start: 07-25-2020 Education 12 [facility] Start: 1960 Sex Assigned At Female [facility] Start: 10-29-2021 End: 11-08-2021 Exposure to SARS-CoV-2 (event) Not sure [facility] Work Phone: Progress note 09-17-2022 Note Date & Type Note Facility 09-17-2022 Note HNO ID: [id number] Author: Ashley Campoverde APRN.REPORTER ANCHOR Service: ? Author Type: Nurse Practitioner Type: Progress Notes Filed: 09/17/2022 9:46 AM Note Text: Came in with complaints of severe depression and suicidal thoughts. Patient says she has been thinking about pulling out in front of this MRI. Patient does have a history of depression and has been on Paxil. Patient says the last few days it does not seem to be working. Patient does have a history of an adrenal mass. This has not been monitored in a long time according to caregiver that was with her. At this time patient is being referred to the emergency room for full evaluation and safety of the patient. Family member will take her right now. Notified [facility] doctor that patient is on her way with daughter. [facility] Progress note 11-08-2021 Note Date & Type Note Facility 11-08-2021 Note HNO ID: [id number] Author: RT Christie(R) Service: Radiology Author Type: Technologist Type: Progress Notes Filed: 11/08/2021 10:22 AM Note Text: Radiology Service Progress Note PATIENT NAME: Sydnee Cabrera DATE OF SERVICE: November 08, 2021 TIME: 10:06 AM PATIENT IDENTITY VERIFICATION COMPLETED USING TWO (2) IDENTIFIERS: Name and Date of confirmed by patient verbally. FALL SCREENING: Has the patient had 2 falls in the last year or 1 fall with injury or currently using an Ambulatory Assistive Device (Walker, Cane, Wheelchair, Crutches, etc.)? No PATIENT GENDER DATA: Female. status: : No status: NO. PATIENT RELEVANT IMPLANT DATA REVIEWED: Yes RADIOLOGY DEPARTMENT: General X-ray: Exam(s) Completed: Lower Extremity X-Ray(s): Foot, Left and Wt. Bearing PERIPHERAL IV DATA: Not applicable SIGNED BY: RT Christie(R) November 08, 2021 10:06 AM [facility] Progress note 11-08-2021 Note Date & Type Note Facility 11-08-2021 Note HNO ID: [id number] Author: Tejal Landon APRN.REPORTER ANCHOR Service: ? Author Type: Nurse Practitioner Type: Progress Notes Filed: 11/08/2021 10:58 AM Note Text: Subjective HPI Nontoxic-appearing female presents urgent care chief complaint left foot pain. Duration of symptoms 9 days. Associated symptoms left foot pain. Patient states she was walking at work 9 days ago when she felt a sharp pain in the lateral aspect of left foot. Patient works in a long term. Walks approximately 4 to 5 miles a day. Patient states pain has increased over the last 9 days. States she has noticed mild amount of swelling as well. Patient states pain does improve with rest is exacerbated by walking. States there is areas of point tenderness. History of surgery to this foot for plantar fasciitis. No OTC medications. Denies any numbness no tingling. No decrease sensation. Past medical history prescription medication use allergies reviewed. .Patient presents with: Pain (foot): L foot pain, no injury or cause known x9 days PAST MEDICAL HISTORY Diagnosis Date - Agoraphobia with panic attacks 06/28/2018 - NONE - Situational mixed anxiety and depressive disorder 06/28/2018 - Vitamin D deficiency 06/28/2018 PAST SURGICAL HISTORY Procedure Laterality Date - COLONOSCOPY FLX DX W/COLLJ SPEC WHEN PFRMD 03/11/2019 Colonoscopy - LIG/TRNSXJ FLP TUBE ABDL/VAG APPR UNI/BI Tubal ligation - PAST SURGICAL HISTORY OF TMJ surgery - PAST SURGICAL HISTORY OF back durgery - STEREOTACTIC CORE BIOPSY 10/13/05 LEFT BREAST - TOTAL ABDOMINAL HYSTERECT W/WO RMVL TUBE OVARY Hysterectomy, CHRIS ALLERGIES Adhesive Tape (Rosins), Asa [Salicylates], Laramie, Demerol [Meperidine (Pf)], Gentamicin, Latex, Penicillins, and Thimersol [Other] MEDICATIONS levocetirizine 5 mg tablet Take 5 mg by mouth. ibuprofen 800 mg ORAL tablet Take one(1) tablet every eight(8) hours with food as needed for pain. lisinopril (ZESTRIL) 10 mg tablet Take 1 tablet by mouth once daily. nicotine (NICODERM) 14 mg/24 hr Apply 1 Patch as directed every 24 hours. No smoking with patch. Nicotine Polacrilex [address] 1 Lozenge between cheek and gum as needed. PARoxetine (PAXIL) 30 mg tablet Take 1 tablet by mouth once daily. Cholecalciferol, Vitamin D3, 2,000 unit cap Take 1 capsule by mouth once daily. FAMILY HISTORY Problem Relation Age of Onset - Hypertension Father SKIN CANCER - Cancer Paternal Aunt PANCREATIC CANCER - Cancer Paternal Grandmother STOMACH CANCER Social History Tobacco Use - Smoking status: Current Every Day Smoker Packs/day: 0.50 Years: 20.00 Pack years: 10.00 Types: Cigarettes - Smokeless tobacco: Never Used Vaping Use - Vaping Use: Never used Substance Use Topics - Alcohol use: No - Drug use: No BP 128/82 Pulse 74 Temp 37.1 ?C (98.7 ?F) Resp 20 Wt 72 kg (158 lb 12.8 oz) SpO2 97% BMI 28.67 kg/m? Review of Systems Constitutional: Negative for chills, fever and malaise/fatigue. HENT: Negative for congestion, ear discharge, ear pain, sinus pain and sore throat. Eyes: Negative for blurred vision, pain, discharge and redness. Respiratory: Negative for cough, hemoptysis, sputum production, shortness of breath, wheezing and stridor. Cardiovascular: Negative for chest pain. Gastrointestinal: Negative for abdominal pain, diarrhea, nausea and vomiting. Musculoskeletal: Negative for myalgias. Skin: Negative for itching and rash. Neurological: Negative for dizziness and headaches. Objective Physical Exam Constitutional: General: She is not in acute distress. Appearance: She is not diaphoretic. HENT: Head: Normocephalic. Eyes: Conjunctiva/sclera: Conjunctivae normal. Pupils: Pupils are equal, round, and reactive to light. Cardiovascular: Rate and Rhythm: Normal rate and regular rhythm. Heart sounds: Normal heart sounds. Pulmonary: Effort: Pulmonary effort is normal. No tachypnea, accessory muscle usage or respiratory distress. Breath sounds: Normal breath sounds. No stridor. Abdominal: Palpations: Abdomen is soft. Tenderness: There is no abdominal tenderness. Musculoskeletal: Cervical back: Normal range of motion and neck supple. No rigidity or tenderness. Left ankle: Normal. Left Achilles Tendon: Normal. Left foot: Normal capillary refill. Swelling, tenderness and bony tenderness present. Normal pulse. Feet: Comments: Pain with palpation over the dorsal aspect of left foot laterally. Neurovascular intact. No breaks in skin. Small amount of edema noted. No erythema. No warmth. No weaknesses. No decreased range of motion. Lymphadenopathy: Cervical: No cervical adenopathy. Skin: General: Skin is warm and dry. Neurological: Mental Status: She is alert and oriented to person, place, and time. ASSESSMENT/PLAN: 1. Foot pain, left - ICD9: 729.5, ICD10: M79.672 - XR FOOT GENERAL 3V AP/LAT/OBL LEFT - CONSULT TO PODIATRY Impre (more content not included)... [facility] History of Present illness Narrative 11-08-2021 Tejal Landon APRN.[facility] - 11/08/2021 10:00 AM EDT Note Date & Type Note Facility 11-08-2021 History of Presen t illness Narrative Images from the original note were not included. Subjective HPI Nontoxic-appearing female presents urgent care chief complaint left foot pain. Duration of symptoms 9 days. Associated symptoms left foot pain. Patient states she was walking at work 9 days ago when she felt a sharp pain in the lateral aspect of left foot. Patient works in a long term. Walks approximately 4 to 5 miles a day. Patient states pain has increased over the last 9 days. States she has noticed mild amount of swelling as well. Patient states pain does improve with rest is exacerbated by walking. States there is areas of point tenderness. History of surgery to this foot for plantar fasciitis. No OTC medications. Denies any numbness no tingling. No decrease sensation. Past medical history prescription medication use allergies reviewed. .Patient presents with: Pain (foot): L foot pain, no injury or cause known x9 days PAST MEDICAL HISTORY Diagnosis Date Agoraphobia with panic attacks 06/28/2018 NONE Situational mixed anxiety and depressive disorder 06/28/2018 Vitamin D deficiency 06/28/2018 PAST SURGICAL HISTORY Procedure Laterality Date COLONOSCOPY FLX DX W/COLLJ SPEC WHEN PFRMD 03/11/2019 Colonoscopy LIG/TRNSXJ FLP TUBE ABDL/VAG APPR UNI/BI Tubal ligation PAST SURGICAL HISTORY OF TMJ surgery PAST SURGICAL HISTORY OF back durgery STEREOTACTIC CORE BIOPSY 10/13/05 LEFT BREAST TOTAL ABDOMINAL HYSTERECT W/WO RMVL TUBE OVARY Hysterectomy, CHRIS ALLERGIES Adhesive Tape (Rosins), Asa [Salicylates], [place], Demerol [Meperidine (Pf)], Gentamicin, Latex, Penicillins, and Thimersol [Other] MEDICATIONS levocetirizine 5 mg tablet Take 5 mg by mouth. ibuprofen 800 mg ORAL tablet Take one(1) tablet every eight(8) hours with food as needed for pain. lisinopril (ZESTRIL) 10 mg tablet Take 1 tablet by mouth once daily. nicotine (NICODERM) 14 mg/24 hr Apply 1 Patch as directed every 24 hours. No smoking with patch. Nicotine Polacrilex [address] 1 Lozenge between cheek and gum as needed. PARoxetine (PAXIL) 30 mg tablet Take 1 tablet by mouth once daily. Cholecalciferol, Vitamin D3, 2,000 unit cap Take 1 capsule by mouth once daily. FAMILY HISTORY Problem Relation Age of Onset Hypertension Father SKIN CANCER Cancer Paternal Aunt PANCREATIC CANCER Cancer Paternal Grandmother STOMACH CANCER Social History Tobacco Use Smoking status: Current Every Day Smoker Packs/day: 0.50 Years: 20.00 Pack years: 10.00 Types: Cigarettes Smokeless tobacco: Never Used Vaping Use Vaping Use: Never used Substance Use Topics Alcohol use: No Drug use: No BP 128/82 Pulse 74 Temp 37.1 C (98.7 F) Resp 20 Wt 72 kg (158 lb 12.8 oz) SpO2 97% BMI 28.67 kg/m Review of Systems Constitutional: Negative for chills, fever and malaise/fatigue. HENT: Negative for congestion, ear discharge, ear pain, sinus pain and sore throat. Eyes: Negative for blurred vision, pain, discharge and redness. Respiratory: Negative for cough, hemoptysis, sputum production, shortness of breath, wheezing and stridor. Cardiovascular: Negative for chest pain. Gastrointestinal: Negative for abdominal pain, diarrhea, nausea and vomiting. Musculoskeletal: Negative for myalgias. Skin: Negative for itching and rash. Neurological: Negative for dizziness and headaches. Objective Physical Exam Constitutional: General: She is not in acute distress. Appearance: She is not diaphoretic. HENT: Head: Normocephalic. Eyes: Conjunctiva/sclera: Conjunctivae normal. Pupils: Pupils are equal, round, and reactive to light. Cardiovascular: Rate and Rhythm: Normal rate and regular rhythm. Heart sounds: Normal heart sounds. Pulmonary: Effort: Pulmonary effort is normal. No tachypnea, accessory muscle usage or respiratory distress. Breath sounds: Normal breath sounds. No stridor. Abdominal: Palpations: Abdomen is soft. Tenderness: There is no abdominal tenderness. Musculoskeletal: Cervical back: Normal range of motion and neck supple. No rigidity or tenderness. Left ankle: Normal. Left Achilles Tendon: Normal. Left foot: Normal capillary refill. Swelling, tenderness and bony tenderness present. Normal pulse. Feet: Comments: Pain with palpation over the dorsal aspect of left foot laterally. Neurovascular intact. No breaks in skin. Small amount of edema noted. No erythema. No warmth. No weaknesses. No decreased range of motion. Lymphadenopathy: Cervical: No cervical adenopathy. Skin: General: Skin is warm and dry. Neurological: Mental Status: She is alert and oriented to person, place, and time. ASSESSMENT/PLAN: 1. Foot pain, left - ICD9: 729.5, ICD10: M79.672 - XR FOOT GENERAL 3V AP/LAT/OBL LEFT - CONSULT TO PODIATRY Impression: 1. No acute fracture or dislocation. No fractures dislocations noted on x-ray. Will continue to rest and use NSAIDs as needed. Appointment made with podiatry for Thursday of next week. Red flags for prompt reevaluation discussed. Patient was educated on supportive therapies. Patient will follow up with primary care provider as needed. Patient was instructed to immediately proceed to emergency room for any new, worsening, or symptoms lasting longer than anticipated. The patient's clinical presentation is otherwise unremarkable at this time. Based on exam and clinical finding, the patient is stable for discharge. Plan of care was discussed with patient. Patient verbalizes understanding and agrees to plan of care. This note was generated using [employer] software. It may contain errors in wording, punctuation, or spelling. Tejal Landon APRN.SHIRLEY documented in this encounter [facility] History of Past illness Narrative 06-28-2018 Note Date & Type Note Facility documented as of this encounter (statuses as of 11/08/2021) [facility] Evaluation note Note Date & Type Note Facility documented in this encounter [facility] Reason for Referral Specialty Diagnoses / Procedures Referred By Contac t Referred To Contact Podiatry Diagnoses Foot pain, left Procedures CONSULT TO PODIATRY OFFICE/OUTPATIENT [facility] 60-74 MINUTES Tejal Landon APRN.CNP [address] [place] [address] Referral ID Status Reason Start Date Expiration Date Visits Requested Visits Authorized [id number] Pending Review PCP Requested Referral 11/08/2021 11/08/2022 1 1 Specialty Diagnoses / Procedures Referred By Contac t Referred To Contact XR IMAGING Diagnoses Foot pain, left Procedures XR FOOT GENERAL 3V AP/LAT/OBL LEFT RADEX FOOT COMPLETE MINIMUM 3 VIEWS Tejal Landon APRN.CNP [address] [place] [address] Xr Imaging Referral ID Status Reason Start Date Expiration Date V isits Requested Visits Authorized [id number] Closed Auto-Generate d Referral 11/08/2021 12/08/2022 1 1 Advance Directives No Advanced Directives Records FoundDocuments on File Type Date Recorded 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 Expl 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 Advance Directive(s) 03/11/2019 8:18 AM Summary Purpose Family History No Family History Records FoundNo Family History Records Found Additional Source Comments Source Comments (unrecognize d section and content) In the event this informatio n is protected by the Federal Confidentiality of Alcohol and Drug Abuse Patient Records regulations: The Federal rules restrict any use of the information to criminally investigate or prosecute any alcohol or drug abuse patient.[facility] Reason for Visit (unrecogniz ed section and content) INFORMATION SOURCE (unrecogn ized section and content) DATE CREATED AUTHOR AUTHOR'S ORGANIZ ATION 09/23/2022 [facility] FOR RECORDS PERTAINING TO PATIENTS WHO ARE OR HAVE BEEN ENROLLED IN A CHEMICAL DEPENDENCY/SUBSTANCEABUSE PROGRAM, SOME INFORMATION MAY BE OMITTED. This clinical summary was aggregated from multiple sources. Caution should be exercised in using it in the provision of clinical care. This summary normalizes information from multiple sources, and as a consequence, information in this document may materially change the coding, format and clinical context of patient data. In addition, data may be omitted in some cases. CLINICAL DECISIONS SHOULD BE BASED ON THE PRIMARY CLINICAL RECORDS. [employer] [facility] provides no warranty or guarantee of the accuracy or completeness of information in this document.
[2023-06-18 12:19] LABS: Absolute Lymphocyte Count 2.87 X10^3/uL (0.83-4.51); Absolute Neutrophil Count 3.6 X10^3/uL (2.0-7.7); Basophil# 0.07 X10^3/uL; Eosinophil# 0.22 X10^3/uL; Hematocrit 48.4 % (37-47); Hemoglobin 14.8 g/dL (12.0-15.0); Lymphocyte # 2.87 X10^3/ul (0.83-4.51); Lymphocyte % 39.8 % (19-41); Mean Corp Hgb Conc 30.6 g/dL (32-36); Mean Corpuscular Hgb 28.3 pg (27.0-32.0); Mean Corpuscular Volume 92.5 fL (81-99); Monocyte# 0.48 X10^3/uL; Monocyte% 6.6 % (0-10); NRBC Flagged by Analyzer 0 % (0-5); Neutrophil # 3.56 X10^3/uL (2.7-7.7); Neutrophil % 49.3 % (47-70); Platelet Count 288 K/mm3 (150-450); RBC Distribution Width SD 44.2 fl (35.1-43.9); Red Blood Count 5.23 M/mm3 (4.2-5.4); White Blood Count 7.2 K/mm3 (4.4-11.0)
[2023-06-18 13:17] LABS: ALB/GLOB Ratio 1.1 RATIO (0.9-2.4); AST(SGOT) 14 U/L (15-37); Alanine Aminotransfer ALT/SGPT 15 U/L (13-56); Albumin, Serum 3.8 g/dL (3.2-5.0); Alkaline Phosphatase 116 U/L (45-117); Anion Gap 5 (5-15); BUN 13 mg/dL (7-18); BUN/Creat Ratio 23.5 RATIO (10-20); Calcium,Total 8.7 mg/dL (8.5-10.1); Chloride 108 mmol/L (98-107); Cholesterol 148 mg/dL (200); Creatinine, Serum 0.55 mg/dL (0.55-1.02); EST Glomerular Filtration Rate 117 mL/min (>60); Est Glom Filt Rate - Afr Amer 141 mL/min (>60); Globulin 3.4 g/dL (2.2-4.2); Glucose 90 mg/dL (74-106); High Density Lipoprotein 58 mg/dL; Potassium 4.3 mmol/L (3.5-5.1); Protein, Total 7.2 g/dL (6.4-8.2); Sodium Level 141 mmol/L (136-145); Thyroid Stim Hormone (TSH) 0.77 uIU/mL (0.358-3.74); Triglycerides 134 mg/dL; Very Low Density Lipoprotein 27 mg/dL (5-40)
[2023-06-18 14:05] LABS: Vitamin D,25 Hydroxy 40.3 ng/mL
[2023-06-19 11:09] LABS: ANTINUCLEAR ANTIBODIES DIRECT Negative (Negative)
[2023-06-19 20:08] LABS: Lamotrigine (Lamictal) Level < 1.0 ug/mL (2.0-20.0)
== END | disposition home or self-care (01) ==
LOC: BIMLAB 09:13
PROVIDERS: PCP Internal Medicine; Referring Provider Internal Medicine; Visit Provider Internal Medicine
DX: L60.9 Nail disorder, unspecified (principal); F41.9 Anxiety disorder, unspecified; F32.A Depression, unspecified; E55.9 Vitamin D deficiency, unspecified; E78.2 Mixed hyperlipidemia
CPT/HCPCS: 36415; 80053; 80061; 82306; 82542; 84443; 85025; 86038; 86225; 86235

== ENCOUNTER → 2024-06-28 | Outpatient (CLI) | payer MEDICARE, SELFPAY ==
[2024-06-28 12:36] LABS: Absolute Lymphocyte Count 2.89 X10^3/uL (0.83-4.51); Absolute Neutrophil Count 4.5 X10^3/uL (2.0-7.7); Basophil# 0.07 X10^3/uL; Basophil% 0.9 % (0-1); Eosinophil# 0.05 X10^3/uL; Eosinophils% 0.6 % (0-5); Hematocrit 47.7 % (37-47); Hemoglobin 15.5 g/dL (12.0-15.0); Lymphocyte # 2.89 X10^3/ul (0.83-4.51); Lymphocyte % 36.5 % (19-41); Mean Corp Hgb Conc 32.5 g/dL (32-36); Mean Corpuscular Hgb 29.2 pg (27.0-32.0); Mean Platelet Vol. 11.4 fl (6.2-12.0); Monocyte# 0.42 X10^3/uL; Monocyte% 5.3 % (0-10); NRBC Flagged by Analyzer 0 % (0-5); Neutrophil # 4.45 X10^3/uL (2.7-7.7); Neutrophil % 56.3 % (47-70); Platelet Count 271 K/mm3 (150-450); RBC Distribution Width CV 12.6 % (11.6-14.6); RBC Distribution Width SD 41.4 fl (35.1-43.9); White Blood Count 7.9 K/mm3 (4.4-11.0)
[2024-06-28 12:38] LABS: Vitamin D,25 Hydroxy 27.3 ng/mL
[2024-06-28 13:25] LABS: ALB/GLOB Ratio 1.1 RATIO (0.9-2.4); AST(SGOT) 11 U/L (15-37); Alanine Aminotransfer ALT/SGPT 17 U/L (13-56); Albumin, Serum 3.9 g/dL (3.2-5.0); Alkaline Phosphatase 109 U/L (45-117); Anion Gap 7 (5-15); BUN 9 mg/dL (7-18); BUN/Creat Ratio 13.3 RATIO (10-20); Calcium,Total 9.9 mg/dL (8.5-10.1); Chloride 108 mmol/L (98-107); Cholesterol 156 mg/dL (200); Creatinine, Serum 0.68 mg/dL (0.55-1.02); EST Glomerular Filtration Rate 92 mL/min (>60); Est Glom Filt Rate - Afr Amer 112 mL/min (>60); Globulin 3.6 g/dL (2.2-4.2); Glucose 105 mg/dL (74-106); High Density Lipoprotein 61 mg/dL; Potassium 3.8 mmol/L (3.5-5.1); Protein, Total 7.5 g/dL (6.4-8.2); Sodium Level 142 mmol/L (136-145); Triglycerides 113 mg/dL; Very Low Density Lipoprotein 23 mg/dL (5-40)
== END | disposition home or self-care (01) ==
PROVIDERS: PCP Internal Medicine; Referring Provider Internal Medicine; Visit Provider Internal Medicine
DX: E78.2 Mixed hyperlipidemia (principal); E55.9 Vitamin D deficiency, unspecified; I10 Essential (primary) hypertension
CPT/HCPCS: 36415; 80053; 80061; 82306; 85025

== ENCOUNTER → 2024-07-28 | Outpatient (CLI) | payer MEDICARE, SELFPAY ==
--- NOTE | 2024-07-28 14:28 | BD_ITS ---
PROCEDURE: DEXA BONE DENSITY STUDY REASON FOR EXAM: F, age 64 y/o . Postmenopausal. TECHNIQUE: DEXA scan of the lumbar spine and both hips. COMPARISON: None. FINDINGS: T-SCORES Lumbar spine: Total bone mineral density of the lumbar spine (L1-L3) measures 0.649 grams/centimeter squared. T-score measures -3.4 and Z-score measures -1.5. Left hip: Total bone mineral density of the left hip measures 0.657 grams/centimeter squared. T-score measures -2.3 and Z-score measures -1.0. Bone mineral density of the left femoral neck measures 0.464 grams/centimeter squared. T-score measures -3.5 and Z-score measures -1.9. Right hip: Total bone mineral density of the right hip measures 0.665 grams/centimeter squared. T-score measures -2.3 and Z-score measures -1.0. The left femoral neck bone mineral density measures 0.456 grams/centimeter squared. T-score measures -3.5 and Z-score measures -2.0. Patient demonstrates osteoporosis of the lumbar spine and both hips. FRAX* Results: 10 Year Probability of Fracture: Hip Fracture(1): 23% Major Osteoporotic Fracture(2): 11% *FRAX is a trademark of the [employer]'s [place] for Metabolic Bone Disease, World Health Organization (WHO) Collaborating [place]. 1-The 10-year probability of fracture may be lower than reported if the patient has received treatment. 2-Major Osteoporotic Fracture: Clinical Spine, Forearm, Hip or Shoulder. The T-scores are also available for review on the [facility] PACS or by accessing the [facility] electronic medical record. BD/Dexa Bone Density Study IMPRESSION: OSTEOPOROSIS. Reading Location: [id number]
--- NOTE | 2024-07-28 14:28 | BI_ITS ---
PROCEDURE: SCRN MAMM (CAD)W/CHRISTINA BILAT REASON FOR EXAM: F, Age 64 y/o, history of remote left stereotactic breast biopsy. No family history. TECHNIQUE: Bilateral screening digital breast tomosynthesis with 2D and 3D images. Computer aided detection. COMPARISON: Prior exam(s) dating back to November 11, 2022.. FINDINGS: There are scattered areas of fibroglandular density. The tissue clip marker is seen within the 5 mm nodule in the central aspect of the left breast. Small benign-appearing bilateral axillary lymph nodes. Stable examination. No suspicious masses, areas of developing architectural distortion, or suspicious calcifications. BI/SCRN MAMM (CAD)W/CHRISTINA BILAT IMPRESSION: BI-RADS 2: BENIGN. RECOMMEND ANNUAL MAMMOGRAPHIC SCREENING. Follow-up code: Routine Follow-up The patient will be notified of the results by letter. Reading Location: [place] [id number]
== END | disposition home or self-care (01) ==
LOC: OPBD 14:26
PROVIDERS: PCP Internal Medicine; Referring Provider Internal Medicine; Visit Provider Internal Medicine
DX: Z12.31 Encounter for screening mammogram for malignant neoplasm of breast (principal); Z78.0 Asymptomatic menopausal state
CPT/HCPCS: 77063; 77067; 77080

== ENCOUNTER 2024-09-13 08:28 | Day surgery (SDC) | payer MEDICARE, SELFPAY ==
--- NOTE | 2024-09-09 15:21 | PAT.ANESEVAL ---
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 When Was Last Pacemaker Check QUESTION #4 FULL TEXT: You/Your Family Experience fever (hyperthermia) with Anesthesia Last Oral Intake Last Oral intake: Last Oral Intake NPO since Meds taken in AM with sips of water? Meds patient instructed to take am of surgery PONV PONV - sampling theory teacher: PONV - sampling theory teacher Female Yes 09/09/24 10:44 HX of Motion Sickness No 09/09/24 10:44 HX of N/V After Surgery No 09/09/24 10:44 Non-Smoker Yes 09/09/24 10:44 Duration of Surgery greater No 09/09/24 10:44 than 60 minutes Number of Risk Factors 2 09/09/24 10:44 PONV Score Moderate Risk 09/09/24 10:44 Height & Weight Height & Weight: Anesthesia: Height & Weight Height 5 ft 2 in 08/10/24 09:30 Respiratory Assessment Respiratory Assessment - sampling theory teacher: Respiratory Tract Infection Hx - sampling theory teacher Hx Respiratory Tract Infection No 09/09/24 10:44 STOP Sleep Apnea STOP Sleep Apnea - sampling theory teacher: STOP Sleep Apnea - sampling theory teacher Hx Hypertension No 09/09/24 10:44 Hx Sleep Apnea No 09/09/24 10:44 CPAP BIPAP Do you snore loudly (louder No 09/09/24 10:44 than talking or can be heard Do you often feel tired/ No 09/09/24 10:44 fatigued/ sleepy during daytime? Has anyone observed you stop No 09/09/24 10:44 breathing during sleep? STOP Results Negative 09/09/24 10:44 QUESTION #5 FULL TEXT : Do you snore loudly (louder than talking or can be heard through closed doors)? 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 Specify any problems Hx of Preganancy in last 3 No 09/09/24 10:44 Months Nurse Filling Out Transfusion VCHRISTIN 09/09/24 10:44 & Questions: Date: 09/09/24 09/09/24 10:44 Time: 10:45 09/09/24 10:44 Patient unable to answer at this time (ie. confused, unrespo /Reproduction History /Reproductive History - sampling theory teacher: /Reproductive Hx- sampling theory teacher Hx Now Gestational Age (in weeks): EDC: Hx Hx Para Hx Section SAB PFSH Medical History (Updated 09/09/24 @ 10:44 by Cierra Olmedo) Wears glasses Post-menopausal Cancer History of diverticulitis Smoker Leg cramps Contusion of left foot Headache, migraine Hypertension PTSD (post-traumatic stress disorder) Depressed Anxiety History of breast lump History of fracture Seasonal allergies Adrenal disorder Diverticulitis History of skin cancer Back pain Shoulder pain Arthritis Plantar fasciitis history of herniated discs back History of TMJ disorder Home Medications ?Medication ?Instructions ?Recorded ?Last Taken ?Type ibuprofen 600 mg tablet 600 mg PO Q8H PRN pain 10/20/22 Unknown History cholecalciferol (vitamin D3) 50 50 mcg PO DAILY 06/10/23 Unknown History mcg (2,000 unit) capsule atorvastatin 10 mg tablet 10 mg PO QHS #90 tabs 06/28/24 Unknown Rx buspirone 10 mg tablet 10 mg PO BID #180 tabs 06/28/24 Unknown Rx cetirizine 10 mg capsule (All Day 10 mg PO DAILY PRN allergy symptoms 09/09/24 Unknown History Allergy (cetirizine)) lisinopril 5 mg tablet 5 mg PO QHS 09/09/24 Unknown History Allergy/AdvReac Type Severity Reaction Status Date / Time doxycycline Allergy Intermediate vision Verified 09/09/24 10:33 issues. head aches adhesive Allergy Mild Rash Verified 09/09/24 10:33 cobalt Allergy Mild Rash Verified 09/09/24 10:33 nickel Allergy Mild Rash Verified 09/09/24 10:33 meperidine (From Demerol) Allergy Anaphylaxis Verified 09/09/24 10:33 aspirin AdvReac Nausea/Vom/ Verified 09/09/24 10:33 Diarrhea Latex, Natural Rubber AdvReac Hives Verified 09/09/24 10:33 Penicillins AdvReac Anaphylaxis Verified 09/09/24 10:33 Family History Mother Cancer DVT (deep venous thrombosis) Lung cancer Father Kidney failure Bladder cancer CVA (cerebral vascular accident) Sister Arthritis Grandmother Heart disease Grandfather Cancer esophageal Grandfather Cancer Aunt Cancer pancreatic Aunt Cancer pancreatic Uncle Cancer Uncle Cancer Grandfather Parkinson's disease Daughter Fibromyalgia Other Hypertension Skin cancer Thyroid disorder Surgical History H/O Mohs micrographic surgery for skin cancer S/P skin biopsy H/O foot surgery H/O lumpectomy S/P skin cancer resection History of breast biopsy History of D&C H/O discectomy History of tubal ligation History of hysterectomy Social History household members: spouse current occupational status: 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 Sinus tachycardia heart rate of 124 bpm. Left axis deviation. Inferior infarct age undetermined. Anterior infarct age undetermined. Recommendation Anesthesia Recommendation Anesthesia recommendation: OPTIMIZED for anesthesia
[2024-09-13] VITALS (7 sets, daily range): BP systolic 109–117; BP diastolic 53–68; PULSE 67–83; RESP 14–18; TEMP 36.2–36.7; O2SAT 95–96; BMI 27.3
--- NOTE | 2024-09-13 09:17 | PCM.PRE.AN2 ---
ASA Classification* ASA Classification ASA Classification: 2 Assessment & Plan Anesthesia* Anesthesia Assessment Anesthesia Assessment: Discussed sedation and/or anesthesia options, risks, benefits, and alternatives with patient/parents/legal guardian/POA. Questions invited. The patient/parents/legal guardian/POA seems to understand and agrees to proceed with anesthesia plan. Reviewed the physical assessment, medical history, allergy history and patient home medications list prior to surgery/procedure/anesthetic and documented any changes. Performed airway and anesthesia risk assessments. Anesthesia Type Anesthesia Type: MAC History Source History Obtained from:: Patient and Chart Anesthesia Focused Assessment* Temperature: 98.1 F Pulse Rate: 83 Blood Pressure: 111/54 Respiratory Rate: 16 Pulse Ox: 96 Oxygen Delivery Method: Room Air Airway Assessment Mouth opens: >3 cm Mallampati Score: III Teeth Condition: Caps/Crowns (Patient has a crown left lower molar. It is tight.) and Missing (Patient is missing several teeth. The rest are tight.) Neck Range of motion (ROM): Full ROM Focused Labs Anesthesia Preop lab: CBC WBC 7.9 K/mm3 (4.4-11.0) 06/28/24 08:08 06/28/24 RBC 5.30 M/mm3 (4.2-5.4) 06/28/24 08:08 06/28/24 Hgb 15.5 g/dL (12.0-15.0) H 06/28/24 08:08 06/28/24 Hct 47.7 % (37-47) H 06/28/24 08:08 06/28/24 Plt Count 271 K/mm3 (150-450) 06/28/24 08:08 06/28/24 CHEMISTRY Potassium 3.8 mmol/L (3.5-5.1) 06/28/24 08:08 06/28/24 Sodium 142 mmol/L (136-145) 06/28/24 08:08 06/28/24 BUN 9 mg/dL (7-18) 06/28/24 08:08 06/28/24 Creatinine 0.68 mg/dL (0.55-1.02) 06/28/24 08:08 06/28/24 Glucose 105 mg/dL (74-106) 06/28/24 08:08 06/28/24 TSH 0.77 uIU/mL (0.358-3.74) 06/18/23 09:14 06/18/23 COAG Pre-Assessment Diagnosis/Proposed Procedure Planned Operative Procedure(s): COLONOSCOPY Anesthesia History 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 When Was Last Pacemaker Check QUESTION #4 FULL TEXT: You/Your Family Experience fever (hyperthermia) with Anesthesia Last Oral Intake Last Oral intake: Last Oral Intake NPO since 00:00 09/13/24 08:44 Meds taken in AM with sips of No 09/13/24 08:44 water? 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 - packing supervisor Female Yes 09/09/24 10:44 HX of Motion Sickness No 09/09/24 10:44 HX of N/V After Surgery No 09/09/24 10:44 Non-Smoker Yes 09/09/24 10:44 Duration of Surgery greater No 09/09/24 10:44 than 60 minutes Number of Risk Factors 2 09/09/24 10:44 PONV Score Moderate Risk 09/09/24 10:44 Height & Weight Height & Weight: Anesthesia: Height & Weight Height 5 ft 2 in 09/13/24 08:44 Weight: 68 kg 09/13/24 08:44 Body Mass Index (BMI) 27.3 09/13/24 08:44 Respiratory Assessment Respiratory Assessment - packing supervisor: Respiratory Tract Infection Hx - packing supervisor Hx Respiratory Tract Infection No 09/09/24 10:44 STOP Sleep Apnea STOP Sleep Apnea - packing supervisor: STOP Sleep Apnea - packing supervisor Hx Hypertension No 09/09/24 10:44 Hx Sleep Apnea No 09/09/24 10:44 CPAP BIPAP Do you snore loudly (louder No 09/09/24 10:44 than talking or can be heard Do you often feel tired/ No 09/09/24 10:44 fatigued/ sleepy during daytime? Has anyone observed you stop No 09/09/24 10:44 breathing during sleep? STOP Results Negative 09/09/24 10:44 QUESTION #5 FULL TEXT : Do you snore loudly (louder than talking or can be heard through closed doors)? 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 Specify any problems Hx of Preganancy in last 3 No 09/09/24 10:44 Months Nurse Filling Out Transfusion VCHRISTIN 09/09/24 10:44 & Questions: Date: 09/09/24 09/09/24 10:44 Time: 10:45 09/09/24 10:44 Patient unable to answer at this time (ie. confused, unrespo /Reproduction History /Reproductive History - packing supervisor: /Reproductive Hx- packing supervisor Hx Now Gestational Age (in weeks): EDC: Hx Hx Para Hx Section SAB PFSH Medical History Wears glasses Post-menopausal Cancer History of diverticulitis Smoker Leg cramps Contusion of left foot Headache, migraine Hypertension PTSD (post-traumatic stress disorder) Depressed Anxiety History of breast lump History of fracture Seasonal allergies Adrenal disorder Diverticulitis History of skin cancer Back pain Shoulder pain Arthritis Plantar fasciitis history of herniated discs back History of TMJ disorder Home Medications ?Medication ?Instructions ?Recorded ?Last Taken ?Type ibuprofen 600 mg tablet 600 mg PO Q8H PRN pain 10/20/22 Unknown History cholecalciferol (vitamin D3) 50 50 mcg PO DAILY 06/10/23 Unknown History mcg (2,000 unit) capsule atorvastatin 10 mg tablet 10 mg PO QHS #90 tabs 06/28/24 Unknown Rx buspirone 10 mg tablet 10 mg PO BID #180 tabs 06/28/24 Unknown Rx cetirizine 10 mg capsule (All Day 10 mg PO DAILY PRN allergy symptoms 09/09/24 Unknown History Allergy (cetirizine)) lisinopril 5 mg tablet 5 mg PO QHS 09/09/24 Unknown History Allergy/AdvReac Type Severity Reaction Status Date / Time doxycycline Allergy Intermediate vision Verified 09/13/24 08:44 issues. head aches adhesive Allergy Mild Rash Verified 09/13/24 08:44 cobalt Allergy Mild Rash Verified 09/13/24 08:44 nickel Allergy Mild Rash Verified 09/13/24 08:44 meperidine (From Demerol) Allergy Anaphylaxis Verified 09/13/24 08:44 aspirin AdvReac Nausea/Vom/ Verified 09/13/24 08:44 Diarrhea Latex, Natural Rubber AdvReac Hives Verified 09/13/24 08:44 Penicillins AdvReac Anaphylaxis Verified 09/13/24 08:44 Family History Mother Cancer DVT (deep venous thrombosis) Lung cancer Father Kidney failure Bladder cancer CVA (cerebral vascular accident) Sister Arthritis Grandmother Heart disease Grandfather Cancer esophageal Grandfather Cancer Aunt Cancer pancreatic Aunt Cancer pancreatic Uncle Cancer Uncle Cancer Grandfather Parkinson's disease Daughter Fibromyalgia Other Hypertension Skin cancer Thyroid disorder Surgical History H/O Mohs micrographic surgery for skin cancer S/P skin biopsy H/O foot surgery H/O lumpectomy S/P skin cancer resection History of breast biopsy History of D&C H/O discectomy History of tubal ligation History of hysterectomy Social History household members: spouse current occupational status: 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
--- NOTE | 2024-09-13 09:45 | COLBX_PTH ---
PATIENT: GENARO JOY LOC: EN U#:[id number] AGE/SX: 64/F ROOM: RE09/13/[address]: Dr. Dmitry Perry MD : 1960 BED: DIS: 09/13/2024 SPEC #: [id number] RECD: 09/13/24 13:26 STATUS: FERNANDO MARIA ALEJANDRA #: [id number] WILL: 09/13/24 09:[address]: Dmitry Perry DEPT: SURGICAL PATHOLOGY RECD BY: Taye Lord ENTERED: 09/13/24 13:26 SP TYPE: COLON BX OTHR DR: Dr. Anju Bautista MD Tissues: A - Cecum, NOS Procedures: Surgery Specimen Level IV HEADER OPERATION: Colonoscopy with biopsy PRE-OP DIAGNOSIS: Cologuard test - positive TISSUE SUBMITTED: A- Cecal polyp biopsy MICROSCOPIC DIAGNOSIS A. Colon, cecum, polyp, biopsy: * Tubular adenoma. MICROSCOPIC DESCRIPTION Slides are reviewed. GROSS DESCRIPTION A. Received in fixative is one container labeled with the patient's name and designated Cecal polyp biopsy. The specimen consists of one irregular fragment of light abraham soft tissue that measures 0.5 x 0.3 x 0.2 cm. The specimen is totally submitted in one cassette. 09/13/2024 CPT:61347
--- NOTE | 2024-09-13 10:08 | PCM.HP.STD ---
HPI - General General Date of Admission: 09/13/24 Date of Service: 09/13/24 Chief Complaint: Colonoscopy HPI Narrative The patient is a 64-year-old female who is being seen today for colonoscopy. She states that her last colonoscopy was about 9 years ago and was apparently unremarkable. She had a Cologuard test performed within the past month and this was positive. She denies any GI issues or complaints. No blood in her stools. No black or tarry stools. No family history of colon polyps or colon cancers. She does state that she had diverticulitis in the past. [facility] Medical History Wears glasses Post-menopausal Cancer History of diverticulitis Smoker Leg cramps Contusion of left foot Headache, migraine Hypertension PTSD (post-traumatic stress disorder) Depressed Anxiety History of breast lump History of fracture Seasonal allergies Adrenal disorder Diverticulitis History of skin cancer Back pain Shoulder pain Arthritis Plantar fasciitis history of herniated discs back History of TMJ disorder Home Medications ?Medication ?Instructions ?Recorded ?Last Taken ?Type ibuprofen 600 mg tablet 600 mg PO Q8H PRN pain 10/20/22 Unknown History cholecalciferol (vitamin D3) 50 50 mcg PO DAILY 06/10/23 Unknown History mcg (2,000 unit) capsule atorvastatin 10 mg tablet 10 mg PO QHS #90 tabs 06/28/24 Unknown Rx buspirone 10 mg tablet 10 mg PO BID #180 tabs 06/28/24 Unknown Rx cetirizine 10 mg capsule (All Day 10 mg PO DAILY PRN allergy symptoms 09/09/24 Unknown History Allergy (cetirizine)) lisinopril 5 mg tablet 5 mg PO QHS 09/09/24 Unknown History Allergy/AdvReac Type Severity Reaction Status Date / Time doxycycline Allergy Intermediate vision Verified 09/13/24 08:44 issues. head aches adhesive Allergy Mild Rash Verified 09/13/24 08:44 cobalt Allergy Mild Rash Verified 09/13/24 08:44 nickel Allergy Mild Rash Verified 09/13/24 08:44 meperidine (From Demerol) Allergy Anaphylaxis Verified 09/13/24 08:44 aspirin AdvReac Nausea/Vom/ Verified 09/13/24 08:44 Diarrhea Latex, Natural Rubber AdvReac Hives Verified 09/13/24 08:44 Penicillins AdvReac Anaphylaxis Verified 09/13/24 08:44 Family History Mother Cancer DVT (deep venous thrombosis) Lung cancer Father Kidney failure Bladder cancer CVA (cerebral vascular accident) Sister Arthritis Grandmother Heart disease Grandfather Cancer esophageal Grandfather Cancer Aunt Cancer pancreatic Aunt Cancer pancreatic Uncle Cancer Uncle Cancer Grandfather Parkinson's disease Daughter Fibromyalgia Other Hypertension Skin cancer Thyroid disorder Surgical History H/O Mohs micrographic surgery for skin cancer S/P skin biopsy H/O foot surgery H/O lumpectomy S/P skin cancer resection History of breast biopsy History of D&C H/O discectomy History of tubal ligation History of hysterectomy Social History household members: spouse 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 occupational status: 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 [employer] Smoking Status: Current every day smoker (Patient smoked today.) tobacco type: cigarettes Electronic Cigarette Use: not used alcohol intake: never substance use type: does not use what type of physical activity do you participate in: walking frequency: 5-6 times per week do you feel safe at home: Yes Vital Signs Vital Signs Vital Signs: 09/13/24 08:44 09/13/24 08:44 09/13/24 09:24 Temperature 98.1 F 98.1 F Temperature Source Temporal Pulse Rate 83 83 Respiratory Rate 16 16 Respiratory Pattern Normal Blood Pressure 111/54 L 111/54 L Blood Pressure Mean 73 Blood Pressure Source Monitor Blood Pressure Position Semi-Fowlers Blood Pressure Location Right Arm Pulse Ox 96 96 Oxygen Delivery Method Room Air Room Air Weight Weight: 149 lb 14.629 oz Body Mass Index (BMI) 27.3 Physical Exam Const alert, oriented x3 and no apparent distress Charges/Coding Visit Charges Inpatient E&M: 13551 Init Hosp L1
--- NOTE | 2024-09-13 10:59 | OP.CCLET_ITS ---
09/13/2024 Anju Bautista Md Re : Colonoscopy procedure for Sydnee Cabrera Dear Lily This procedure was performed on Friday, September 13, 2024. My impressions and recommendations are as follows: Impressions : - Diverticulosis in the entire examined colon. - One 4 mm polyp in the cecum, removed with a cold biopsy forceps. Resected and retrieved. - The examination was otherwise normal. Recommendations : - Discharge patient to home (ambulatory). - High fiber diet. - Await pathology results. - Repeat colonoscopy in 5 years for surveillance. - Return to my office PRN. - Continue present medications. My findings are described in the full procedure note, which is enclosed. If I can be of further assistance, please feel free to contact me at . Sincerely, Dmitry Perry MD 09/13/2024 10:58:59 AM This report has been signed electronically.
--- NOTE | 2024-09-13 10:59 | OP.COLON_ITS ---
Patient Name: Sydnee Cabrera Procedure Date: 09/13/2024 10:11 AM Date of : 1960 Age: 64 Procedure: Colonoscopy Indications: Positive Cologuard test Providers: Dmitry Perry MD Referring MD: Anju Bautista Md Medicines: Monitored Anesthesia Care Patient Profile: Refer to note in patient chart for documentation of history and physical. Last Colonoscopy: several years ago. Complications: No immediate complications. Estimated blood loss: Minimal. Procedure: Pre-Anesthesia Assessment: - Prior to the procedure, a History and Physical was performed, and patient medications and allergies were reviewed. The patient's tolerance of previous anesthesia was also reviewed. The risks and benefits of the procedure and the sedation options and risks were discussed with the patient. All questions were answered, and informed consent was obtained. Prior Anticoagulants: The patient has taken no anticoagulant or antiplatelet agents. ASA Grade Assessment: II - A patient with mild systemic disease. After reviewing the risks and benefits, the patient was deemed in satisfactory condition to undergo the procedure. After I obtained informed consent, the scope was passed under direct vision. Throughout the procedure, the patient's blood pressure, pulse, and oxygen saturations were monitored continuously. The colonoscope was introduced through the anus and advanced to the cecum, identified by appendiceal orifice and ileocecal valve. The ileocecal valve, appendiceal orifice, and rectum were photographed. The entire colon was well visualized. The colonoscopy was somewhat difficult due to a tortuous colon. The patient tolerated the procedure well. The quality of the bowel preparation was adequate. Moderate Sedation: See the other procedure note for documentation of moderate sedation with intraservice time. Scope In: 10:23:38 AM Scope Withdrawal Time 0 hours 10 minutes 30 seconds Scope Out: 10:50:24 AM Total Procedure Duration Time 0 hours 26 minutes 46 seconds Findings: The perianal and digital rectal examinations were normal. A few small-mouthed diverticula were found in the entire colon. A 4 mm polyp was found in the cecum. The polyp was semi-sessile. The polyp was removed with a cold biopsy forceps. Resection and retrieval were complete. Verification of patient identification for the specimen was done by the nurse using the patient's name, date and medical record number. The exam was otherwise without abnormality. Impression: - Diverticulosis in the entire examined colon. - One 4 mm polyp in the cecum, removed with a cold biopsy forceps. Resected and retrieved. - The examination was otherwise normal. Recommendation: - Discharge patient to home (ambulatory). - High fiber diet. - Await pathology results. - Repeat colonoscopy in 5 years for surveillance. - Return to my office PRN. - Continue present medications. Procedure Code(s): --- Professional --- 43691, Colonoscopy, flexible; with biopsy, single or multiple Diagnosis Code(s): --- Professional --- D12.0, Benign neoplasm of cecum K57.30, Diverticulosis of large intestine without perforation or abscess without bleeding R19.5, Other fecal abnormalities CPT copyright 2021 [employer]. All rights reserved. The codes documented in this report are preliminary and upon sample examiner review may be revised to meet current compliance requirements. Dmitry Perry MD 09/13/2024 10:58:59 AM This report has been signed electronically. Number of Addenda: 0 Note Initiated On: 09/13/2024 10:11 AM
--- NOTE | 2024-09-13 11:00 | PCM.POST.ANE ---
Anesthesia: Postop Eval I Current Vital Signs Temperature: 97.4 F Pulse Rate: 70 Blood Pressure: 117/68 Respiratory Rate: 18 Pulse Ox: 96 Oxygen Delivery Method: Room Air Assessment Airway patent: Yes Spontaneous unlabored respirations: Yes Mental status: Asleep nausea: No Vomiting: No Anesthesia Complication: No Fluid Hydration Crystalloid volume administer (ml): 60 Total IV fluid infused: 60 Progress Note Anesthesia document: Postop Eval 1 completed: Yes
--- NOTE | 2024-09-13 12:31 | PCM.POSTANE2 ---
Anesthesia Postop Eval I Sum Postop Eval Completion status Anesthesia document: Postop Eval 1 completed: Yes Anesthesia Postop Eval I Summary Anesthesia Postop Eval I Summary: Anesthesia Postop Eval I: Assessment Summary Airway patent Yes 09/13/24 11:02 [email or web address] Spontaneous unlabored Yes 09/13/24 11:02 [email or web address] respirations Mental status Asleep 09/13/24 11:02 [email or web address] nausea No 09/13/24 11:02 [email or web address] Vomiting No 09/13/24 11:02 [email or web address] Anesthesia Postop Eval I: Fluid Summary Crystalloid volume administer 60 09/13/24 11:02 [email or web address] (ml) Colloids volume administered ( ml) Blood Product volume administered (ml) Total IV fluid infused 60 09/13/24 11:02 [email or web address] Anesthesia Postop Eval I: Summary Notes Anesthesia Complication No 09/13/24 11:02 [email or web address] Anesthesia Complication Comment: Post-operative progress note Anesthesia: Postop Eval II Evaluation Mental status: Awake and Calm Pain Level: 0 nausea: No Vomiting: No Complications Anesthesia Complication: No
== END 2024-09-13 11:38 | disposition home or self-care (01) ==
LOC: EN 08:29 → AC 08:30
PROVIDERS: PCP Internal Medicine; Referring Provider Internal Medicine; Visit Provider Surgery
PROC: 0DJD8ZZ Inspection of Lower Intestinal Tract, Via Natural or Artificial Opening Endoscopic (ICD-10-PCS; CPT 45378; principal; 2024-09-13 09:40)
DX: D12.0 Benign neoplasm of cecum (principal); I10 Essential (primary) hypertension; K57.30 Diverticulosis of large intestine without perforation or abscess without bleeding; F17.210 Nicotine dependence, cigarettes, uncomplicated; F43.10 Post-traumatic stress disorder, unspecified; R19.5 Other fecal abnormalities; Z79.899 Other long term (current) drug therapy
CPT/HCPCS: 45380; 88305; A4216; J2405